=== PATIENT | female | born 1990 | race Caucasian/White ===

== ENCOUNTER 2017-01-05 07:31 | Emergency (ER) | payer OTHER ==
[2017-01-05 07:41] VITALS: BP 110/97
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
--- NOTE | 2017-01-05 09:18 | CR ---
Pelvis: AP view of the pelvis was obtained. Comparison: No prior exam. Joint spaces within both hips are preserved. Sacroiliac joints appear within normal limits. No fracture or other bony abnormality is seen. Impression: 1. No abnormality is identified on AP pelvis study. Diagnostic code #1
== END 2017-01-05 09:06 ==
LOC: JD.ED 07:31
DX: R10.9 Unspecified abdominal pain (principal); F17.210 Nicotine dependence, cigarettes, uncomplicated; Z88.6 Allergy status to analgesic agent; Z79.899 Other long term (current) drug therapy; V49.9XXA Car occupant (driver) (passenger) injured in unspecified traffic accident, initial encounter
CPT/HCPCS: 36415; 72170; 72170-26; 85025; 99283; 99284

== ENCOUNTER 2017-07-23 20:22 | Emergency (ER) | payer SELFPAY ==
[2017-07-23 20:45] VITALS: BP 108/69
--- NOTE | 2017-07-23 22:35 | EDM.PDOC ---
ED HPI GENERAL MEDICAL PROBLEM - General Chief Complaint: ENT Problem Stated Complaint: sore throat Time Seen by Provider: 07/23/17 22:20 Source of Information: Reports: Patient History Limitations: Reports: No Limitations - History of Present Illness INITIAL COMMENTS - FREE TEXT/NARRATIVE: Patient is a 26-year-old female presents the ED complained a 2 day history of sore throat. States with onset symptoms have progressively got worse. Still continues to eat and drink but has noticed a decreased. Pain with swallowing. Sinus congestion with postnasal drip and some ear discomfort. Denies any history of fever. Of note there is questional history of recent sick exposures. She has a productive cough at times secondary to the postnasal drip. She denies any fever, shortness of breath, chest pain, nausea vomiting, or any additional complaints. She has a history of opiod addiction and is on Suboxone. History of anxiety and depression on prozac. Patient smokes half pack per day. Denies any alcohol or recreational drug use. She's had no ENT surgeries. 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 Psychiatric History: Reports: Addiction, Anxiety - Past Surgical History HEENT Surgical History: Reports: Other (See Below) Other HEENT Surgeries/Procedures: tooth extraction Social & Family History - Family History Family Medical History: Noncontributory - Tobacco Use Smoking Status *Q: Current Every Day Smoker Years of Tobacco use: 6 Packs/Tins Daily: 0.5 - Caffeine Use Caffeine Use: Reports: Coffee - Recreational Drug Use Recreational Drug Use: No - Living Situation & Occupation Living situation: Reports: Single, with Family Occupation: Employed ED ROS ENT - Review of Systems Review Of Systems: ROS reveals no pertinent complaints other than HPI. ED EXAM, ENT - Physical Exam Exam: See Below Exam Limited By: No Limitations General Appearance: Alert, WD/WN, No Apparent Distress Eye Exam: Bilateral Eye: PERRL Ears: Normal External Exam, Normal Canal, Hearing Grossly Normal, Normal TMs Nose: Normal Inspection, Normal Mucousa, No Blood Mouth/Throat: Normal Inspection, Pharyngeal Erythema, Throat Pain. No: Drooling , Dry Mucous Membrane, Muffled Voice, Throat Swelling, Tongue Swelling, Tonsillar Erythema, Tonsillar Exudates, Tonsillar Swelling, Trismus, Uvular Deviation Head: Atraumatic, Normocephalic Neck: Normal Inspection, Supple, Full Range of Motion, Tender Lateral. No: Lymphadenopathy (L), Lymphadenopathy (R) Respiratory/Chest: No Respiratory Distress, Lungs Clear, Normal Breath Sounds, No Accessory Muscle Use, Chest Non-Tender Cardiovascular: Normal Peripheral Pulses, Regular Rate, Rhythm Extremities: Normal Inspection Neurological: Alert, Oriented, CN II-XII Intact, Normal Cognition, No Motor/ Sensory Deficits Psychiatric: Normal Affect, Normal Mood Skin: Warm, Dry, Normal Color, No Rash Course - Vital Signs Last Recorded V/S: Last Vital Signs Temp 98.3 F 07/23/17 20:44 Pulse 70 07/23/17 20:44 Resp 20 07/23/17 20:44 BP 108/69 07/23/17 20:44 Pulse Ox 98 07/23/17 20:44 - Orders/Labs/Meds Orders: Active Orders 24 hr Category Date Time Status CULTURE STREP A CONFIRMATION [] Stat Lab 07/23/17 21:43 Results STREP SCRN A RAPID W CULT CONF [] Stat Lab 07/23/17 21:43 Ordered - Re-Assessments/Exams Free Text/Narrative Re-Assessment/Exam: Strep screen negative. Patient has a viral upper respiratory infection with postnasal drip contributing to sore throat. Mild redness noted to the throat with no exposed days. Patient is requesting antibiotic. I have instructed the patient that antibiotics are required at this time. She'll follow-up with her primary this week as needed. Advised the patient cold-like symptoms can last up to 10-14 days. Symptomatic treatment is appropriate. Discharge instructions as documented. Departure - Departure Time of Disposition: 22:31 Disposition: Home, Self-Care 01 Condition: Good Clinical Impression: Viral upper respiratory tract infection Acute pharyngitis Qualifiers: Pharyngitis/tonsillitis etiology: unspecified etiology Qualified Code(s): J02.9 - Acute pharyngitis, unspecified - Discharge Information Instructions: Upper Respiratory Infection, Adult, Rurw-br-Hlrv, Pharyngitis, [id number] Referrals: Glenis Aceves NP [Primary Care Provider] - Forms: ED Department Discharge, ED Return to Work/School Form Additional Instructions: Followup with PCP this week as needed. Utilize tylenol and ibuprofen in alternating fashion for pain. Push the fluids. Utilize flonase 1 spray each nare twice a day. Nasal saline spray as needed throughout the day for nasal congestion. Gargle warm water as needed. May use over the counter Chloraseptic [place] and/or lozenges. Return to the E.D. for any new or worsening symptoms. - My Orders Last 24 Hours: My Active Orders 07/23/17 21:43 CULTURE STREP A CONFIRMATION [RM] Stat STREP SCRN A RAPID W CULT CONF [RM] Stat - Assessment/Plan Last 24 Hours: My Active Orders 07/23/17 21:43 CULTURE STREP A CONFIRMATION [RM] Stat STREP SCRN A RAPID W CULT CONF [RM] Stat
== END 2017-07-23 22:40 | disposition home or self-care (01) ==
LOC: JD.ED 20:22
DX: J02.9 Acute pharyngitis, unspecified (principal); F17.210 Nicotine dependence, cigarettes, uncomplicated; Z88.6 Allergy status to analgesic agent; Z79.899 Other long term (current) drug therapy
CPT/HCPCS: 87081; 87430; 99282; 99283

== ENCOUNTER 2018-04-22 17:54 | Emergency (ER) | payer SELFPAY ==
[2018-04-22 18:05] VITALS: BP 118/91
[2018-04-22] MEDS ORDERED: Orphenadrine 100 MG Tab.ER PO STA (18:40)
[2018-04-22] MEDS ORDERED: Calcium Carbonate 500 MG Tab.Chew PO STA (18:45)
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
== END 2018-04-22 19:07 | disposition home or self-care (01) ==
LOC: JD.ED 17:54
DX: R07.81 Pleurodynia (principal); M25.512 Pain in left shoulder; F17.210 Nicotine dependence, cigarettes, uncomplicated; Z76.5 Malingerer [conscious simulation]; W00.0XXA Fall on same level due to ice and snow, initial encounter
CPT/HCPCS: 99283; A9270; 99282

== ENCOUNTER 2019-02-02 16:30 | Emergency (ER) | payer SELFPAY ==
[2019-02-02 18:26] VITALS: BP 119/76; PULSE 77
--- NOTE | 2019-02-02 20:09 | EDM.PDOC ---
ED HPI GENERAL MEDICAL PROBLEM - General Chief Complaint: ENT Problem Stated Complaint: SORE THROAT Time Seen by Provider: 02/02/19 18:50 Source of Information: Reports: Patient History Limitations: Reports: No Limitations - History of Present Illness INITIAL COMMENTS - FREE TEXT/NARRATIVE: Ms. Ledbetter is a 28-year-old woman with a past medical history significant for anxiety, depression, who states that she has had a sore throat for the past 4 days, upper chest pain for the past 3 days, and a cough occasionally productive of dark brown sputum, for the past 2 days. She states that she had a temperature of 103 last night, although she told the triage nurse that she had not checked her temperature. She is afebrile here in the ED. She reports recent fatigue and body aches, and states that she has had difficulty sleeping. No recent nausea or vomiting. The patient states that she has taken DayQuil, NyQuil, and Sucrets throat lozenges, without relief. She also reports that she has taken Tylenol and ibuprofen, 6 tablets (1200 mg) at one time today. The patient has a history of addiction to both benzodiazepines and opioids. At present, she is prescribed clonazepam 1 mg BID per her PCP, and Suboxone 8-2, 2.5 sublingual tablets per day per her pain child welfare manager. When asked about this, however, the patient downplayed it stating that she only takes Suboxone on occasion. Review of the [place] PMPi, however, finds that the patient receives refills of Suboxone on a monthly basis, with her most recent prescription, a 35 day supply, filled on 01/06/2019. The patient's PCP is Socorro Coley NP. Her pain child welfare manager is Dr. Sanya Duckworth, at [facility] in [place]. She has not received an influenza vaccine this season, but agreed to receive one here today. 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 Psychiatric History: Reports: Addiction (opioids, benzodiazepines), Anxiety, Depression Endocrine/Metabolic History: Reports: Obesity/BMI 30+ - Past Surgical History HEENT Surgical History: Reports: Oral Surgery (3 wisdom teeth extracted) Female Surgical History: Reports: Other (See Below) (Exploratory laparoscopy for endometriosis) Social & Family History - Family History Family Medical History: Noncontributory - Tobacco Use Smoking Status *Q: Current Some Day Smoker Years of Tobacco use: 12 Packs/Tins Daily Comment: Down from 1 ppd - Caffeine Use Caffeine Use: Reports: Coffee, Tea - Alcohol Use Alcohol Use History: No - Recreational Drug Use Recreational Drug Use: Yes Drug Use in Last 12 Months: Yes Recreational Drug Type: Reports: Benzodiazepines (Rx'd clonazepam 1 mg BID), Other (see below) (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 ED EXAM, GENERAL - Physical Exam Exam: See Below Exam Limited By: No Limitations General Appearance: Alert, WD/WN, No Apparent Distress Eye Exam: Bilateral Eye: EOMI, Normal Inspection Ears: Normal External Exam, Normal Canal, Hearing Grossly Normal, Normal TMs Nose: Normal Inspection, Normal Mucosa, No Blood Throat/Mouth: Normal Inspection, Normal Lips, Normal Teeth, Normal Gums, Normal Oropharynx, Normal Voice, No Airway Compromise, Other (Small piece of white foodstuff stuck on uvula. No oropharyngeal erythema or swelling, no tonsillar swelling,and no tonsillar exudates.) Head: Atraumatic, Normocephalic Neck: Normal Inspection, Supple, Non-Tender, Full Range of Motion. No: Lymphadenopathy (L), Lymphadenopathy (R) Respiratory/Chest: No Respiratory Distress, Lungs Clear, Normal Breath Sounds, No Accessory Muscle Use. No: Decreased Breath Sounds, Crackles, Rhonchi, Wheezing, Stridor, Prolonged Expiration Cardiovascular: Normal Peripheral Pulses, Regular Rate, Rhythm, No Edema, No Gallop, No JVD, No Murmur, No Rub Peripheral Pulses: 4+: Radial (L), Radial (R) GI/Abdominal: Normal Bowel Sounds, Soft, Non-Tender, No Organomegaly, No Distention, No Abnormal Bruit, No Mass (Female) Exam: Deferred Rectal (Female) Exam: Deferred Back Exam: Normal Inspection, Full Range of Motion, NT Extremities: Normal Inspection, Normal Range of Motion, No Pedal Edema, Normal Capillary Refill Neurological: Alert, Oriented, Normal Cognition, No Motor/Sensory Deficits, Slow to Respond (and moves slowly) Psychiatric: Normal Affect Skin Exam: Warm, Dry, Intact, Normal Color, No Rash Course - Vital Signs Last Recorded V/S: Last Vital Signs Temp 37.1 C 02/02/19 18:20 Pulse 77 02/02/19 18:20 Resp 16 02/02/19 18:20 BP 119/76 02/02/19 18:20 Pulse Ox 95 02/02/19 18:20 - Orders/Labs/Meds Orders: Active Orders 24 hr Category Date Time Status CULTURE STREP A CONFIRMATION [] Stat Lab 02/02/19 18:39 Results STREP SCRN A RAPID W CULT CONF [] Stat Lab 02/02/19 18:39 Results - Re-Assessments/Exams Free Text/Narrative Re-Assessment/Exam: 02/02/19 20:05 The patient is likely suffering from a viral URI with cough. Her sore throat appears to be viral in etiology; a rapid strep test (ordered by her nurse) is negative, and while I see a piece of foodstuff on her uvula, her tonsils are not swollen, there is no significant oropharyngeal erythema, and there are no tonsillar exudates. For today's purposes, I have ordered a chest x-ray. If her chest x-ray is normal, no further workup is necessary, however, if her chest x- ray suggests pneumonia, then I will need to obtain a CBC and blood cultures. 02/02/19 20:41 Notified by Samson CARDENAS that the patient came and told her that she was going to skip the chest x-ray tonight, that she needed to get home. The patient then left the ED without waiting for discharge instructions. The patient had earlier asked for something to treat her chest pain, and explained that the reason why she took an excessive dose of ibuprofen is because nothing less than that was helping. I am concerned that the patient may have been drug-seeking. Departure - Departure Time of Disposition: 20:42 Disposition: Eloped 07 Condition: Good Clinical Impression: Viral URI with cough, Viral pharyngitis, Drug-seeking behavior - Discharge Information *PRESCRIPTION DRUG MONITORING PROGRAM REVIEWED*: Not Applicable *COPY OF PRESCRIPTION DRUG MONITORING REPORT IN PATIENT VIJI: Not Applicable Referrals: Socorro Coley NP [Primary Care Provider] - Sanya Duckworth MD [Ordering Only Provider] - Forms: ED Department Discharge
== END 2019-02-02 20:15 | disposition left against medical advice (07) ==
LOC: JD.ED 16:30
DX: J06.9 Acute upper respiratory infection, unspecified (principal); J02.8 Acute pharyngitis due to other specified organisms; Z72.89 Other problems related to lifestyle; F41.9 Anxiety disorder, unspecified; F32.9 Major depressive disorder, single episode, unspecified; E66.9 Obesity, unspecified; Z68.31 Body mass index [BMI] 31.0-31.9, adult; Z88.6 Allergy status to analgesic agent; F17.210 Nicotine dependence, cigarettes, uncomplicated
CPT/HCPCS: 87081; 87430; 99281; 99284

== ENCOUNTER 2019-02-03 18:49 | Emergency (ER) | payer SELFPAY ==
[2019-02-03 19:09] VITALS: BP 106/69; PULSE 89
[2019-02-03] MEDS ORDERED: Albuterol/Ipratropium 3.0-0.5 MG/3 ML Neb Soln NEB ONE (19:18)
--- NOTE | 2019-02-03 19:25 | EDM.PDOC ---
ED HPI GENERAL MEDICAL PROBLEM - General Chief Complaint: Respiratory Problem Stated Complaint: sore throat sob Time Seen by Provider: 02/03/19 19:03 Source of Information: Reports: Patient, Old Records (visit from yesterday), RN Notes Reviewed History Limitations: Reports: No Limitations - History of Present Illness INITIAL COMMENTS - FREE TEXT/NARRATIVE: Patient is a 28-year-old female who presents to the ER for the evaluation of a sore throat, and difficulty breathing. Patient notes she was here yesterday, and seen for the same symptoms by Dr. Nieves, but states she did not have a machine attendant, and needed to leave before evaluation was complete. Dr. Nieves plan on ordering a chest x-ray, and her strep screen was negative. Patient states she is still having the sore throat, cough, and generalized body aches. She states she feels warm, but has not had a fever at home. Patient reports she still having a productive cough, with some brown-colored sputum being expectorated. Patient notes she is had a history of pneumonia once before, and her symptoms seem similar in nature. Patient has been taking rabe-ubc-cixzbnh cold medications like DayQuil, Tylenol ibuprofen, throat lozenges, and these seem to be helping the symptoms, but are not helping a whole lot. Mother states that her daughter is also sick at home with cold-like symptoms. Patient states she is a smoker, half pack per day for 10 years, she denies alcohol use or drug use, but does take Suboxone therapy regularly. 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 Musculoskeletal History: Reports: Fracture Neurological History: Reports: Concussion Psychiatric History: Reports: Addiction, Anxiety, Depression Endocrine/Metabolic History: Reports: Obesity/BMI 30+ - Past Surgical History HEENT Surgical History: Reports: Oral Surgery GI Surgical History: Reports: Other (See Below) Female Surgical History: Reports: Other (See Below) Social & Family History - Family History Family Medical History: Noncontributory - Tobacco Use Smoking Status *Q: Current Every Day Smoker Years of Tobacco use: 10 Packs/Tins Daily: 0.5 - Caffeine Use Caffeine Use: Reports: Coffee - Recreational Drug Use Recreational Drug Use: No - Living Situation & Occupation Living situation: Reports: Single, with Family (Daughter) 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 Denies: Chills HEENT: Denies: Rhinitis Respiratory: Reports: Shortness of Breath, Cough, Sputum. Denies: Wheezing Cardiovascular: Reports: Chest Pain (chest discomfort d/t cough) GI/Abdominal: Denies: Abdominal Pain, Constipation, Diarrhea, Nausea, Vomiting Neurological: Denies: Headache ED EXAM, GENERAL - Physical Exam Exam: See Below Exam Limited By: No Limitations General Appearance: Alert, WD/WN, No Apparent Distress Eye Exam: Bilateral Eye: EOMI, Normal Inspection, PERRL Ears: Normal External Exam, Normal Canal, Hearing Grossly Normal, Normal TMs Nose: Normal Inspection, Normal Mucosa, No Blood Throat/Mouth: Normal Inspection, Normal Lips, Normal Teeth, Normal Gums, Normal Oropharynx (mild erythema noted, no obvious swelling), Normal Voice, No Airway Compromise Head: Atraumatic, Normocephalic Neck: Normal Inspection Respiratory/Chest: No Respiratory Distress, No Accessory Muscle Use, Chest Non- Tender, Decreased Breath Sounds (bilaterally), Rhonchi (L lower lung mainly). No: Wheezing Cardiovascular: Normal Peripheral Pulses, Regular Rate, Rhythm, No Murmur Peripheral Pulses: 3+: Radial (L), Radial (R) Extremities: Normal Inspection, Normal Capillary Refill Neurological: Alert, Oriented, Normal Cognition, No Motor/Sensory Deficits Psychiatric: Normal Affect, Normal Mood Skin Exam: Warm, Dry, Intact, Normal Color, No Rash Course - Vital Signs Last Recorded V/S: Last Vital Signs Temp 99.7 F 02/03/19 19:02 Pulse 89 02/03/19 19:02 Resp 16 02/03/19 19:02 BP 106/69 02/03/19 19:02 Pulse Ox 97 02/03/19 19:18 - Orders/Labs/Meds Orders: Active Orders 24 hr Category Date Time Status RT Aerosol Therapy [RC] ASDIRECTED Care 02/03/19 19:18 Active Chest 2V [CR] Stat Exams 02/03/19 19:09 Taken Meds: Medications Discontinued Medications Generic Name Dose Route Start Last Admin Trade Name Toña PRN Reason Stop Dose Admin Albuterol/Ipratropium 3 ml 02/03/19 19:18 02/03/19 19:26 Duoneb 3.0-0.5 Mg/3 Ml NEB 02/03/19 19:19 3 ml ONETIME ONE Administration Ibuprofen 600 mg 02/03/19 19:33 02/03/19 19:39 Motrin PO 02/03/19 19:34 600 mg ONETIME ONE Administration - Re-Assessments/Exams Free Text/Narrative Re-Assessment/Exam: 02/03/19 19:25 Patient presents to the ED for evaluation of sore throat, cough, and increased shortness of breath. I do agree with Dr. Nieves's assessment, and suspect she has a viral upper respiratory infection with a cough. However since she did come to the ER again I will repeat her order the chest x-ray for evaluation, and due to her lung sounds being a little coarse, I did order a DuoNeb for further management. I did offer an IM injection of Toradol for pain management , but the patient declined at this time. 02/03/19 19:39 Patient states that she would like something PO for pain, at this time I did order 600mg Ibuprofen for pain management. 02/03/19 20:05 Chest x-ray is done, and demonstrates no acute consolidation or other abnormality. This was reviewed by myself and Dr. Nieves. It appears that the patient is indeed suffering from a viral respiratory illness, will discharge her home with general recommendations. Departure - Departure Time of Disposition: 20:05 Disposition: Home, Self-Care 01 Condition: Good Clinical Impression: Viral URI with cough - Discharge Information *PRESCRIPTION DRUG MONITORING PROGRAM REVIEWED*: No (was checked yesterday per Dr. Nieves's note) *COPY OF PRESCRIPTION DRUG MONITORING REPORT IN PATIENT VIJI: No Instructions: Viral Respiratory Infection, [id number] Referrals: PCP,None [Primary Care Provider] - Forms: ED Department Discharge, ED Return to Work/School Form Additional Instructions: You have been evaluated in the ED today for your cold like symptoms, cough, sore throat. This is likely a viral illness in etiology. Your chest x-ray did not elicit any sort of consolidation like pneumonia or other worrisome signs at today's visit. Please increase your fluid intake. Get plenty of rest as well. You should feel better in a few days. Recommend that you continue to take rudp-upu-bddmoqv nasal decongestants, cough/ cold remedies to combat this. Medicines like NyQuil, DayQuil, phenylephrine and other sinus decongestants are adequate. You may also take medications like Mucinex, to help thin the mucus, and help with cough suppression. If your symptoms are not better in one week's time recommend that you follow up in a clinic or your primary care provider. Our [facility] clinic number is , the [place] clinic is [phone]. Any family practice provider would be able to provide you with the services. Please return to the ED if your symptoms change or worsen. - My Orders Last 24 Hours: My Active Orders 02/03/19 19:09 Chest 2V [CR] Stat 02/03/19 19:18 RT Aerosol Therapy [RC] ASDIRECTED - Assessment/Plan Last 24 Hours: My Active Orders 02/03/19 19:09 Chest 2V [CR] Stat 02/03/19 19:18 RT Aerosol Therapy [RC] ASDIRECTED
[2019-02-03] MEDS ORDERED: Ibuprofen 600 MG Tab PO ONE (19:33)
--- NOTE | 2019-02-04 09:26 | CR ---
Chest: Two views of the chest were obtained. Comparison: Prior chest x-ray of 07/01/15. Heart size and mediastinum are normal. Lungs are clear. Bony structures appear within normal limits. Impression: 1. Nothing acute is seen on two-view chest x-ray. Diagnostic code #1 This report was dictated in [place] Standard Time
== END 2019-02-03 20:17 | disposition home or self-care (01) ==
LOC: JD.ED 18:49
DX: J06.9 Acute upper respiratory infection, unspecified (principal); F32.9 Major depressive disorder, single episode, unspecified; F17.210 Nicotine dependence, cigarettes, uncomplicated; E66.9 Obesity, unspecified; Z68.32 Body mass index [BMI] 32.0-32.9, adult; Z88.6 Allergy status to analgesic agent; Z79.899 Other long term (current) drug therapy
CPT/HCPCS: 71046; 94640; 99285; A9270; 99282; J7620-GY

== ENCOUNTER 2019-11-26 22:40 | Emergency (ER) | payer BC, MEDICAID ==
[2019-11-26 22:50] VITALS: BP 131/95; PULSE 84
[2019-11-27] MEDS ORDERED: Bupivacaine 0.5% 10 ML SDV INJECT ONE (00:22)
[2019-11-27] MEDS ORDERED: Lidocaine 1% with EPINEPHrine 1:100,000 20 ML MDV INJECT ONE (00:22)
[2019-11-27] MEDS ORDERED: Penicillin V Potassium 500 MG Tab PO STA (00:41)
--- NOTE | 2019-11-27 00:49 | EDM.PDOC ---
ED HPI GENERAL MEDICAL PROBLEM - General Chief Complaint: ENT Problem Stated Complaint: tooth pain Time Seen by Provider: 11/26/19 23:51 Source of Information: Reports: Patient History Limitations: Reports: No Limitations - History of Present Illness INITIAL COMMENTS - FREE TEXT/NARRATIVE: Ms. Ledbetter is a pleasant 29-year-old woman who now presents to the ED with upper left dental pain. She states that she chipped an upper left tooth about 1 month ago, and has had pain to the tooth for the past 2 weeks, much worse tonight after eating something that seemed to irritate it. No recent fever, and no purulent oral drainage. The patient has not made an appointment to see her Dentist, citing lack of insurance. She is requesting a dental block to numb the tooth. Here in the ED, the patient is found to be hemodynamically stable, afebrile, saturating 99% on room air. Other than the dental pain, the patient denies having a recent fever, chills, sore throat, ear pain, nasal or sinus congestion, cough, dyspnea, chest pain, palpitations, nausea, vomiting, constipation, diarrhea, abdominal pain, urinary symptoms, recent weight gain or weight loss, recent bloody bowel movements or black bowel movements, recent joint aches, headaches, or rashes. The patient's PCP is Socorro Coley NP. Her pain manager technical training is Dr. Sanya Duckworth, at [facility] in [place]. Her Dentist is Dr. Pool Ngo. 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) Psychiatric History: Reports: Addiction (opioids, benzodiazepines), Depression, PTSD Endocrine/Metabolic History: Reports: Obesity/BMI 30+ - Past Surgical History HEENT Surgical History: Reports: Oral Surgery (dental extractions) Female Surgical History: Reports: Other (See Below) (Exploratory laparoscopy for endometriosis x 1) Social & Family History - Family History Family Medical History: Noncontributory - Tobacco Use Smoking Status *Q: Current Every Day Smoker Years of Tobacco use: 14 Packs/Tins Daily: 0.5 Packs/Tins Daily Comment: Down from 1 ppd - Caffeine Use Caffeine Use: Reports: Coffee - Alcohol Use Alcohol Use History: No - Recreational Drug Use Recreational Drug Use: No - Living Situation & Occupation Living situation: Reports: Single, with Family (Daughter) 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 ED EXAM, ENT - Physical Exam Exam: See Below Exam Limited By: No Limitations General Appearance: Alert, WD/WN, No Apparent Distress Eye Exam: Bilateral Eye: EOMI, Normal Inspection Ears: Normal External Exam, Normal Canal, Hearing Grossly Normal, Normal TMs Nose: Normal Inspection, Normal Mucousa, No Blood Mouth/Throat: Normal Lips, Normal Oropharynx, Other (General gingivitis and poor oral hygiene. Teeth #1, #2 absent. Tooth #4 absent. Tooth #13 (the tooth of concern) with an anterolateral star. No associated gingival swelling, although there is gingival swelling about tooth #11. No pointing. Teeth #15, 16 absent. Tooth #18 absent. Teeth numbers 22 through 27 with a buccal brace. Tooth #32 absent.) Head: Atraumatic, Normocephalic Neck: Normal Inspection, Supple, Non-Tender, Full Range of Motion. No: Lymphadenopathy (L), Lymphadenopathy (R) ED ENT PROCEDURES - Additional/Other Procedure(s) Other (Free Text) Procedure(s): Procedure: Supraperiosteal injection Indication: Dentalgia Anesthetic: 50:50 admixture of bupivacaine 0.5% without epinephrine and lidocaine 1% with epinephrine Quantity injected: 1-2 ml Location: Tooth #13 The patient tolerated the procedure well Course - Vital Signs Last Recorded V/S: Last Vital Signs Temp 36.0 C L 11/26/19 22:47 Pulse 84 11/26/19 22:47 Resp 17 11/26/19 22:47 BP 131/95 H 11/26/19 22:47 Pulse Ox 99 11/26/19 22:47 - Orders/Labs/Meds Meds: Medications Discontinued Medications Generic Name Dose Route Start Last Admin Trade Name Toña PRN Reason Stop Dose Admin Bupivacaine HCl 10 ml 11/27/19 00:22 11/27/19 00:26 Sensorcaine-Mpf 0.5% INJECT 11/27/19 00:23 10 ml ONETIME ONE Administration Lidocaine/Epinephrine 20 ml 11/27/19 00:22 11/27/19 00:26 Xylocaine 1% With Epinephrine 1:100,000 INJECT 11/27/19 00:23 20 ml ONETIME ONE Administration Penicillin V Potassium 500 mg 11/27/19 00:41 11/27/19 00:46 Veetids PO 11/27/19 00:42 500 mg ONETIME STA Administration - Re-Assessments/Exams Free Text/Narrative Re-Assessment/Exam: 11/27/19 00:41 As above, the patient states that she chipped her upper left tooth about 1 month ago, however, on examination, she appears to have a star of tooth #13. The patient requested a local numbing injection. I therefore prepared a 50:50 admixture of bupivacaine 0.5% without epinephrine and lidocaine 1% with epinephrine, and performed a dental block to tooth #13, aspirating twice and confirming my location before injecting about 2 mL of the admixture. The patient tolerated the procedure well and expressed immediate relief. She has some gingival swelling around tooth #11, but not around tooth #13, and there is no pointing, therefore I am not certain that there is a dental infection, however, the patient is requesting an antibiotic, therefore I will start her on penicillin and prescribe a 10-day course. The patient also requested "something" to help her sleep, stating that the Valium that she is on "doesn't do anything". Given the patient's documented history of addiction to both opioids and benzodiazepines, and her current prescriptions of both Suboxone and diazepam, I do not think it would be appropriate for me to prescribe another sedative. Departure - Departure Time of Disposition: 00:49 Disposition: Home, Self-Care 01 Condition: Good Clinical Impression: Dentalgia, Dental cavity - Discharge Information *PRESCRIPTION DRUG MONITORING PROGRAM REVIEWED*: Not Applicable *COPY OF PRESCRIPTION DRUG MONITORING REPORT IN PATIENT VIJI: Not Applicable Prescriptions: Penicillin V Potassium 1 tab PO Q6HR #40 tab Instructions: Preventive Dental Care, Adult Referrals: PCP,None [Primary Care Provider] - Forms: ED Department Discharge Additional Instructions: You were seen in the emergency room for upper left dental pain. On examination, you appear to have a cavity to an upper left premolar, tooth #13. A numbing dental block was performed, which should give you several hours of relief. You have been started on the antibiotic penicillin, and a prescription for penicillin has been sent to the [facility], located at [address] [place] [address]. Take 1 tablet of penicillin every 6 hours, as prescribed. In addition to penicillin, you may also take jrkk-ykm-lrimvnw ibuprofen, 3 to 4 tablets (600-800 mg) up to every 8 hours, with food, OR [id number] naproxen, 1 to 2 tablets every 12 hours, with food, as needed for discomfort. As discussed, it is very important that you see a dentist within the next 10 days. If any other problems, please do not hesitate to return to the ER. Sepsis Event Note (ED) - Evaluation Sepsis Screening Result: No Definite Risk - Focused Exam Vital Signs: Vital Signs Temp Pulse Resp BP Pulse Ox 11/26/19 22:47 36.0 C L 84 17 131/95 H 99
== END 2019-11-27 00:58 | disposition home or self-care (01) ==
LOC: JD.ED 22:40
DX: K02.9 Dental caries, unspecified (principal); F32.9 Major depressive disorder, single episode, unspecified; F43.10 Post-traumatic stress disorder, unspecified; E66.9 Obesity, unspecified; Z68.34 Body mass index [BMI] 34.0-34.9, adult; F17.210 Nicotine dependence, cigarettes, uncomplicated; Z79.899 Other long term (current) drug therapy
CPT/HCPCS: 64400; 99282; A9270; J3490; 99283

== ENCOUNTER 2020-07-18 18:39 | Emergency (ER) | payer BC, MEDICAID ==
[2020-07-18 19:03] VITALS: BP 106/75; PULSE 99
[2020-07-18] MEDS ORDERED: Sodium Chloride 0.9% 10 ML Syringe FLUSH PRN (19:10)
[2020-07-18] MEDS ORDERED: Sodium Chloride 0.9% 1,000 ML IV STA (19:11)
[2020-07-18] MEDS ORDERED: cefTRIAXone 1 GM in Sodium Chloride 0.9% 100 ML IV ONE (20:12)
--- NOTE | 2020-07-18 20:35 | EDM.PDOC ---
ED HPI GENERAL MEDICAL PROBLEM - General Chief Complaint: Genitourinary Problem Stated Complaint: POSS UTI/SORES ON LEGS Time Seen by Provider: 07/18/20 18:44 Source of Information: Reports: Patient, RN Notes Reviewed History Limitations: Reports: No Limitations - History of Present Illness INITIAL COMMENTS - FREE TEXT/NARRATIVE: Patient is a 29-year-old female presenting to the emergency department with complaints of dysuria with lower abdominal pain that worsens with urination as well as small sores on her legs and arms. Urinary symptoms began approximately 2 days ago. She denies any nausea, vomiting, fever, chills, or flank pain. She has a history of methamphetamine abuse. She had been clean for 6 years, however 1 week ago she relapsed after her was found to be cheating on her. She reports that she injects the drug in her antecubitals. She is concerned with regards to small open areas on her lower legs as well as arms. She states that she saw some "worms "in animal feces when she was changing the puppy pad at her mother's house and is concerned that this is what is causing them. She has been in contact with [facility] in [place] and has been approved to go for treatment. Verbalizes she has next on the waiting list and that they will have an open spot for her at any time. Lower Abdomen Pain Score (Numeric/FACES): 8 - Related Data Allergies Allergy/AdvReac Type Severity Reaction Status Date / Time No Known Allergies Allergy Verified 07/18/20 18:45 Home Meds: Home Meds FLUoxetine [PROzac] 40 mg PO DAILY 01/05/17 [History] Buprenorphine HCl/Naloxone HCl [Suboxone 4 mg-1 mg Sl Film] 1 dose TOP DAILY 07/18/20 [History] Nitrofurantoin Monohyd/M-Cryst [Macrobid 100 mg Capsule] 100 mg PO BID 5 Days #10 capsule 07/18/20 [Rx] Past Medical History [employer]ILD [employer] History: Reports: Endometriosis Musculoskeletal History: Reports: Fracture Neurological History: Reports: Concussion Psychiatric History: Reports: Addiction, Depression, PTSD Endocrine/Metabolic History: Reports: Obesity/BMI 30+ - Past Surgical History HEENT Surgical History: Reports: Oral Surgery Other HEENT Surgeries/Procedures: tooth extraction GI Surgical History: Reports: Other (See Below) Other GI Surgeries/Procedures: Laparscopy Female Surgical History: Reports: Other (See Below) Other Female Surgeries/Procedures: exploratory laprascopy Social & Family History - Family History Family Medical History: No Pertinent Family History - Tobacco Use Tobacco Use Status *Q: Current Every Day Tobacco User Years of Tobacco use: 12 Packs/Tins Daily: 0.2 - Caffeine Use Caffeine Use: Reports: None - Recreational Drug Use Recreational Drug Use: Yes Drug Use in Last 12 Months: Yes Recreational Drug Type: Reports: Methamphetamine Recreational Drug Use Frequency: Daily - Living Situation & Occupation Living situation: Reports: Single, with Family (Daughter) Occupation: Employed ([employer] at [employer]) ED ROS GENERAL - Review of Systems Review Of Systems: See Below Constitutional: Reports: No Symptoms. Denies: Fever, Chills HEENT: Reports: No Symptoms Respiratory: Reports: No Symptoms. Denies: Shortness of Breath, Cough Cardiovascular: Reports: No Symptoms Endocrine: Reports: No Symptoms GI/Abdominal: Reports: Abdominal Pain (intermitted low). Denies: Nausea, Vomiting : Reports: Dysuria, Frequency, Pain. Denies: Flank Pain Musculoskeletal: Reports: No Symptoms Skin: Reports: Other (scattered scabs to extremities) Neurological: Reports: No Symptoms Psychiatric: Reports: Anxiety Hematologic/Lymphatic: Reports: No Symptoms Immunologic: Reports: No Symptoms ED EXAM, RENAL/ - Physical Exam Exam: See Below Exam Limited By: No Limitations General Appearance: Alert, WD/WN, No Apparent Distress Respiratory/Chest: No Respiratory Distress, Lungs Clear, Normal Breath Sounds, No Accessory Muscle Use, Chest Non-Tender Cardiovascular: Normal Peripheral Pulses, Regular Rate, Rhythm, No Edema, No Gallop, No JVD, No Murmur, No Rub GI/Abdominal: Normal Bowel Sounds, Soft, No Organomegaly, No Distention, No Abnormal Bruit, No Mass, Tender (suprapubic tenderness) Extremities: Normal Inspection, Normal Range of Motion, Non-Tender, No Pedal Edema, Normal Capillary Refill, Other (sparsely scattered, small, open areas to lower legs and arms) Neurological: Alert, Oriented, CN II-XII Intact, Normal Cognition, Normal Gait, Normal Reflexes, No Motor/Sensory Deficits Psychiatric: Normal Affect, Normal Mood Course - Vital Signs Last Recorded V/S: Last Vital Signs Temp 98.4 F 07/18/20 18:55 Pulse 99 07/18/20 18:55 Resp 12 07/18/20 18:55 BP 106/75 07/18/20 18:55 Pulse Ox 97 07/18/20 18:55 - Orders/Labs/Meds Orders: Active Orders 24 hr Category Date Time Status Peripheral IV Care [RC] . DIRECTED Care 07/18/20 19:10 Active Sodium Chloride 0.9% [Saline Flush] Med 07/18/20 19:10 Active 10 ml FLUSH ASDIRECTED PRN Peripheral IV Insertion Adult [OM.PC] Stat Oth 07/18/20 19:10 Ordered Medication Orders Sodium Chloride (Sodium Chloride 0.9% 10 Ml Syringe) 10 ml FLUSH ASDIRECTED PRN PRN Reason: Keep Vein Open Last Admin: 07/18/20 19:22 Dose: 10 ml Documented by: DANIEL Labs: Laboratory Tests 07/18/20 07/18/20 07/18/20 Range/Units 18:50 18:50 19:15 WBC 8.44 (3.98-10.04) K/mm3 RBC 4.50 (3.98-5.22) M/mm3 Hgb 12.7 (11.2-15.7) gm/dl Hct 38.9 (34.1-44.9) % MCV 86.4 (79.4-94.8) fl MCH 28.2 (25.6-32.2) pg MCHC 32.6 (32.2-35.5) g/dl RDW Std Deviation 44.0 (36.4-46.3) fL Plt Count 294 D (182-369) K/mm3 MPV 9.5 (9.4-12.3) fl Neut % (Auto) 58.9 (34.0-71.1) % Lymph % (Auto) 30.7 (19.3-51.7) % Finney % (Auto) 6.3 (4.7-12.5) % Eos % (Auto) 3.8 (0.7-5.8) Baso % (Auto) 0.2 (0.1-1.2) % Neut # (Auto) 4.97 (1.56-6.13) K/mm3 Lymph # (Auto) 2.59 (1.18-3.74) K/mm3 Finney # (Auto) 0.53 H (0.24-0.36) K/mm3 Eos # (Auto) 0.32 (0.04-0.36) K/mm3 Baso # (Auto) 0.02 (0.01-0.08) K/mm3 Sodium (136-145) mEq/L Potassium (3.5-5.1) mEq/L Chloride (98-107) mEq/L Carbon Dioxide (21-32) mEq/L Anion Gap (5-15) BUN (7-18) mg/dL Creatinine (0.55-1.02) mg/dL Est Cr Clr Drug Dosing mL/min Estimated GFR (MDRD) (>60) mL/min BUN/Creatinine Ratio (14-18) Glucose (70-99) mg/dL Calcium (8.5-10.1) mg/dL Total Bilirubin (0.2-1.0) mg/dL AST (15-37) U/L ALT (14-59) U/L Alkaline Phosphatase (46-116) U/L Total Protein (6.4-8.2) g/dl Albumin (3.4-5.0) g/dl Globulin gm/dL Albumin/Globulin Ratio (1-2) Urine Color Yellow (Yellow) Urine Appearance Clear (Clear) Urine pH 6.0 (5.0-8.0) Ur Specific Selden > or = 1.030 (1.005-1.030) Urine Protein 2+ H (Negative) Urine Glucose (UA) Negative (Negative) Urine Ketones Trace H (Negative) Urine Occult Blood 3+ H (Negative) Urine Nitrite Positive H (Negative) Urine Bilirubin 1+ H (Negative) Urine Urobilinogen 0.2 (0.2-1.0) Ur Leukocyte Esterase 1+ H (Negative) Urine RBC 40-50 H (0-5) /hpf Urine WBC 30-40 H (0-5) /hpf Ur Squamous Epith Cells 0-5 (0-5) /hpf Amorphous Sediment Moderate H (NOT SEEN) /hpf Urine Bacteria Moderate H (FEW) /hpf Urine Mucus Not seen (FEW) /hpf Hepatitis C Antibody (NEGATIVE) HIV-1 Ab Rapid Screen (NEGATIVE) C trachomatis DNA (PCR) Not detected N gonorrhoeae DNA (PCR) Not detected 07/18/20 07/18/20 Range/Units 19:15 19:15 WBC (3.98-10.04) K/mm3 RBC (3.98-5.22) M/mm3 Hgb (11.2-15.7) gm/dl Hct (34.1-44.9) % MCV (79.4-94.8) fl MCH (25.6-32.2) pg MCHC (32.2-35.5) g/dl RDW Std Deviation (36.4-46.3) fL Plt Count (182-369) K/mm3 MPV (9.4-12.3) fl Neut % (Auto) (34.0-71.1) % Lymph % (Auto) (19.3-51.7) % Finney % (Auto) (4.7-12.5) % Eos % (Auto) (0.7-5.8) Baso % (Auto) (0.1-1.2) % Neut # (Auto) (1.56-6.13) K/mm3 Lymph # (Auto) (1.18-3.74) K/mm3 Finney # (Auto) (0.24-0.36) K/mm3 Eos # (Auto) (0.04-0.36) K/mm3 Baso # (Auto) (0.01-0.08) K/mm3 Sodium 141 (136-145) mEq/L Potassium 3.7 (3.5-5.1) mEq/L Chloride 105 (98-107) mEq/L Carbon Dioxide 30 (21-32) mEq/L Anion Gap 9.7 (5-15) BUN 8 (7-18) mg/dL Creatinine 0.9 (0.55-1.02) mg/dL Est Cr Clr Drug Dosing 95.52 mL/min Estimated GFR (MDRD) > 60 (>60) mL/min BUN/Creatinine Ratio 8.9 L (14-18) Glucose 71 (70-99) mg/dL Calcium 8.4 L (8.5-10.1) mg/dL Total Bilirubin 0.5 (0.2-1.0) mg/dL AST 15 (15-37) U/L ALT 20 (14-59) U/L Alkaline Phosphatase 79 (46-116) U/L Total Protein 6.8 (6.4-8.2) g/dl Albumin 3.7 (3.4-5.0) g/dl Globulin 3.1 gm/dL Albumin/Globulin Ratio 1.2 (1-2) Urine Color (Yellow) Urine Appearance (Clear) Urine pH (5.0-8.0) Ur Specific Selden (1.005-1.030) Urine Protein (Negative) Urine Glucose (UA) (Negative) Urine Ketones (Negative) Urine Occult Blood (Negative) Urine Nitrite (Negative) Urine Bilirubin (Negative) Urine Urobilinogen (0.2-1.0) Ur Leukocyte Esterase (Negative) Urine RBC (0-5) /hpf Urine WBC (0-5) /hpf Ur Squamous Epith Cells (0-5) /hpf Amorphous Sediment (NOT SEEN) /hpf Urine Bacteria (FEW) /hpf Urine Mucus (FEW) /hpf Hepatitis C Antibody Negative (NEGATIVE) HIV-1 Ab Rapid Screen Negative (NEGATIVE) C trachomatis DNA (PCR) N gonorrhoeae DNA (PCR) Meds: Medications Generic Name Dose Route Start Last Admin Trade Name Freq PRN Reason Stop Dose Admin Sodium Chloride 10 ml 07/18/20 19:10 07/18/20 19:22 Sodium Chloride 0.9% 10 Ml Syringe FLUSH 10 ml ASDIRECTED PRN Administration Keep Vein Open Discontinued Medications Generic Name Dose Route Start Last Admin Trade Name Freq PRN Reason Stop Dose Admin Sodium Chloride 1,000 mls @ 999 mls/hr 07/18/20 19:11 07/18/20 19:21 Normal Saline IV 07/18/20 20:11 999 mls/hr NOW STA Administration Ceftriaxone Sodium 1 gm/ 100 mls @ 200 mls/hr 07/18/20 20:12 07/18/20 20:26 Sodium Chloride IV 07/18/20 20:41 200 mls/hr ONETIME ONE Administration - Re-Assessments/Exams Free Text/Narrative Re-Assessment/Exam: Patient is a 29-year-old female presenting to the emergency department with complaints of dysuria, intermittent lower abdominal pain, and concerns regarding some small scabbed areas to her bilateral lower extremities and upper extremities. She reports that she did relapse with methamphetamine use 1 week ago after reports that he was cheating on her. She arrangements have been made for her to go to [facility] for treatment once they have an opening. On exam, she has a few small scabbed areas to her bilateral lower extremities and bilateral upper extremities. These are pinpoint to 0.5 cm in size. There is no redness or erythema to the areas to raise concern of infection. This is likely related to her methamphetamine use. Her exam is otherwise unremarkable. She is requesting to have testing for HIV, hep C, and gonorrhea and chlamydia completed as well. I have ordered blood work, urinalysis, and a 1 L bolus of normal saline. 07/18/20 20:15 Hematology is grossly unremarkable. Hepatitis C and HIV are negative. Urinalysis is grossly positive for urinary tract infection. She has positive nitrites and 1+ leukocyte esterase with numerous RBCs WBCs, and bacteria gonorrhea chlamydia is still pending. I have ordered Rocephin 1 g IV to be given now. 07/18/20 21:13 GC chlamydia was negative. We will discharge the patient home on a prescription for Macrobid. Urine has been sent for culture. Discharge instructions as documented. Departure - Departure Time of Disposition: 21:14 Disposition: Home, Self-Care 01 Condition: Good Clinical Impression: UTI, Urinary tract infectious disease - Discharge Information *PRESCRIPTION DRUG MONITORING PROGRAM REVIEWED*: No *COPY OF PRESCRIPTION DRUG MONITORING REPORT IN PATIENT VIJI: No Prescriptions: Nitrofurantoin Monohyd/M-Cryst [Macrobid 100 mg Capsule] 100 mg PO BID 5 Days #10 capsule Instructions: Urinary Tract Infection, Adult Referrals: Socorro Coley NP [Primary Care Provider] - Forms: ED Department Discharge Additional Instructions: You were seen in the emergency department today for pain and burning with urination. Results of work-up indicate that you have a urinary tract infection. You were also tested today for HIV, hepatitis C, gonorrhea, and chlamydia. All these test were found to be negative. While in the ER, you received a liter of IV fluids as well as IV antibiotics. A [facility] Macrobid which is an [facility]. Recommend that you pick this up tomorrow and take it as prescribed. You may use [id number] Azo for the burning with urination. Recommend that you abstain from the use of methamphetamine. Continue through with your plan to go to [facility] for gabriel atment. If you should experience any new or worsening symptoms, please not hesitate to return to the emergency department for reevaluation Sepsis Event Note (ED) - Evaluation Sepsis Screening Result: No Definite Risk - Focused Exam Vital Signs: Vital Signs Temp Pulse Resp BP Pulse Ox 07/18/20 18:55 98.4 F 99 12 106/75 97 - My Orders Last 24 Hours: My Active Orders 07/18/20 19:10 Peripheral IV Care [RC] . DIRECTED Sodium Chloride 0.9% [Saline Flush] 10 ml FLUSH ASDIRECTED PRN Peripheral IV Insertion Adult [OM.PC] Stat - Assessment/Plan Last 24 Hours: My Active Orders 07/18/20 19:10 Peripheral IV Care [RC] . DIRECTED Sodium Chloride 0.9% [Saline Flush] 10 ml FLUSH ASDIRECTED PRN Peripheral IV Insertion Adult [OM.PC] Stat
[2020-07-18 20:59] LABS: C. TRACHOMATIS BY PCR NOT DETECTED; N. GONORRHOEAE BY PCR NOT DETECTED
== END 2020-07-18 21:41 | disposition home or self-care (01) ==
LOC: SUPCPDRO 18:39 → JD.ED 18:39
DX: N39.0 Urinary tract infection, site not specified (principal); E66.9 Obesity, unspecified; Z68.27 Body mass index [BMI] 27.0-27.9, adult
CPT/HCPCS: 36415; 80053; 81001; 85025; 86803; 87086; 87088; 87186; 87449; 87491; 87591; 96365; 99283; J0696; J7030; G0433

== ENCOUNTER 2022-03-25 20:55 | Emergency (ER) | payer MEDICAID ==
[2022-03-25 21:23] VITALS: BP 119/76; PULSE 65
[2022-03-25] MEDS ORDERED: Bupivacaine 0.25% 10 ML SDV INJECT ONE (22:05)
[2022-03-25] MEDS ORDERED: Lidocaine 1% 5 ML VIAL INJECT ONE (22:05)
[2022-03-25] MEDS ORDERED: Penicillin V Potassium Soln 250 MG/5 ML 100 ML Bottle PO ONE (22:11)
[2022-03-25] MEDS ORDERED: Lidocaine 1% 10 ML MDV ONE (22:15)
[2022-03-25] MEDS ORDERED: Amoxicillin 500 MG Cap PO ONE (22:54)
== END 2022-03-25 22:03 | disposition home or self-care (01) ==
LOC: JD.ED 20:55
DX: K04.7 Periapical abscess without sinus (principal); K02.9 Dental caries, unspecified; K00.7 Teething syndrome; F17.210 Nicotine dependence, cigarettes, uncomplicated; E66.9 Obesity, unspecified; Z68.27 Body mass index [BMI] 27.0-27.9, adult
CPT/HCPCS: 64400; 99282; A9270; J3490

== ENCOUNTER 2022-06-11 13:24 | Emergency (ER) | payer MEDICAID ==
[2022-06-11 13:44] VITALS: BP 107/71; PULSE 97
== END 2022-06-11 16:50 | disposition left against medical advice (07) ==
LOC: JD.ED 13:24
DX: Z91.148 Patient's other noncompliance with medication regimen for other reason (principal); E66.9 Obesity, unspecified; Z68.29 Body mass index [BMI] 29.0-29.9, adult
CPT/HCPCS: 36415; 80053; 84484; 85025; 93005; 93010; 99282; 99284

== ENCOUNTER 2022-07-21 00:08 | Emergency (ER) | payer MEDICAID ==
[2022-07-21 00:44] VITALS: BP 100/86; PULSE 97
[2022-07-21 01:04] LABS: HEMATOCRIT 34.1 % (34.1-44.9); MEAN CORPUSCULAR HEMOGLOBIN 28.3 pg (25.6-32.2); MEAN CORPUSCULAR HGB CONC 32.6 g/dl (32.2-35.5); MEAN PLATELET VOLUME 9.2 fl (9.4-12.3); PLATELET COUNT,PLT 284 K/mm3 (182-369); RED BLOOD CELL COUNT 3.92 M/mm3 (3.98-5.22); WHITE BLOOD CELL COUNT,WBC 6.72 K/mm3 (3.98-10.04)
[2022-07-21 01:13] LABS: HEMOGLOBIN 11.1 gm/dl (11.2-15.7)
[2022-07-21 01:24] LABS: CORONAVIRUS COVID-19 NAA NEGATIVE (NEGATIVE); INFLUENZA A NAA NEGATIVE (NEGATIVE); RESPIRATORY SYNCYTIAL VIR NAA NEGATIVE (NEGATIVE)
[2022-07-21 01:26] LABS: A/G RATIO 1.1 (1-2); ALANINE AMINOTRANSFERASE,ALT 30 U/L (14-59); ALBUMIN 3.3 g/dl (3.4-5.0); ALKALINE PHOSPHATASE 64 U/L (46-116); ANION GAP 10.8 (5-15); ASPARTATE AMNIOTRANSFERASE,AST 17 U/L (15-37); BILIRUBIN TOTAL 0.3 mg/dL (0.2-1.0); BLOOD UREA NITROGEN,BUN 10 mg/dL (7-18); BUN/CREATININE RATIO 12.5 (14-18); C-REACTIVE PROTEIN <0.2 mg/dL (<1.0); CALCIUM 8.1 mg/dL (8.5-10.1); CARBON DIOXIDE,CO2 26 mEq/L (21-32); CHLORIDE,CL 107 mEq/L (98-107); CREATININE 0.8 mg/dL (0.55-1.02); EST CRCL DRUG DOSING (CG) 105.51 mL/min; ESTIMATED GFR 100 mL/min (>60); GLUCOSE RANDOM 85 mg/dL (70-99); POTASSIUM,K 3.8 mEq/L (3.5-5.1); PROTEIN TOTAL,TP 6.2 g/dl (6.4-8.2); SODIUM,NA 140 mEq/L (136-145)
[2022-07-21 01:33] LABS: BAND PERCENT MAN 1 % (0-10); BASOPHILS PERCENT MAN 0 (0.1-1.2); EOSINOPHILS PERCENT MAN 5 % (0.7-5.8); LYMPHOCYTES % ATYPICAL MANUAL 0 %; LYMPHOCYTES PERCENT MAN 42 % (20-40); MONOCYTES PERCENT MAN 3 % (2-10)
[2022-07-21 01:34] LABS: PLATELET COUNT ESTIMATE ADEQUATE
== END 2022-07-21 02:30 | disposition home or self-care (01) ==
LOC: JD.ED 00:08
DX: F40.298 Other specified phobia (principal); F17.210 Nicotine dependence, cigarettes, uncomplicated; Z20.822 Contact with and (suspected) exposure to COVID-19
CPT/HCPCS: 0241U; 36415; 80053; 85007; 85027; 86140; 99283

== ENCOUNTER 2022-12-16 21:02 | Emergency (ER) | payer MEDICAID ==
[2022-12-16 21:15] VITALS: PULSE 85
[2022-12-16 21:51] LABS: BASOPHILS PERCENT AUTO 0.6 % (0.0-1.0); EOSINOPHILS ABSOLUTE AUTO 0.3 K/mm3 (0.0-0.4); EOSINOPHILS PERCENT AUTO 4.8 % (0.0-6.0); HEMATOCRIT 34.1 % (37.0-47.0); HEMOGLOBIN 11.3 gm/dl (12.0-16.0); IMMATURE GRAN ABSOLUTE AUTO 0.01 K/mm3 (0.00-0.05); IMMATURE GRAN PERCENT AUTO 0.2 % (0.0-0.4); LYMPHOCYTES ABSOLUTE AUTO 2.9 K/mm3 (1.0-4.8); MEAN CORPUSCULAR HEMOGLOBIN 29.2 pg (28.0-32.0); MEAN CORPUSCULAR HGB CONC 33.1 g/dl (32.0-36.0); MEAN CORPUSCULAR VOLUME 88.1 fl (83.0-99.0); MEAN PLATELET VOLUME 8.4 fl (9.4-12.3); MONOCYTES ABSOLUTE AUTO 0.4 K/mm3 (0.0-0.8); MONOCYTES PERCENT AUTO 6.2 % (0.0-8.0); NEUTROPHILS ABSOLUTE AUTO 2.9 K/mm3 (1.8-7.7); NEUTROPHILS PERCENT AUTO 44.2 % (41.0-71.0); PLATELET COUNT,PLT 312 K/mm3 (150-400); RED BLOOD CELL COUNT 3.87 M/mm3 (4.10-5.30); WHITE BLOOD CELL COUNT,WBC 6.63 K/mm3 (3.9-11.3)
[2022-12-16 22:10] LABS: A/G RATIO 1.1 (1-2); ALANINE AMINOTRANSFERASE,ALT 22 U/L (14-59); ALBUMIN 3.6 g/dl (3.4-5.0); ALKALINE PHOSPHATASE 62 U/L (46-116); ANION GAP 13.5 (5-15); ASPARTATE AMNIOTRANSFERASE,AST 19 U/L (15-37); BILIRUBIN TOTAL 0.4 mg/dL (0.2-1.0); BLOOD UREA NITROGEN,BUN 12 mg/dL (7-18); BUN/CREATININE RATIO 17.1 (14-18); C-REACTIVE PROTEIN <0.2 mg/dL (<1.0); CALCIUM 8.5 mg/dL (8.5-10.1); CARBON DIOXIDE,CO2 28 mEq/L (21-32); CHLORIDE,CL 103 mEq/L (98-107); CREATININE 0.7 mg/dL (0.55-1.02); EST CRCL DRUG DOSING (CG) 119.46 mL/min; ESTIMATED GFR 117 mL/min (>60); GLUCOSE RANDOM 63 mg/dL (70-99); POTASSIUM,K 3.5 mEq/L (3.5-5.1); PROTEIN TOTAL,TP 6.8 g/dl (6.4-8.2); SODIUM,NA 141 mEq/L (136-145)
[2022-12-17 01:50] VITALS: BP 96/63
== END 2022-12-16 23:00 | disposition home or self-care (01) ==
LOC: JD.ED 21:02
DX: F22 Delusional disorders (principal); E66.9 Obesity, unspecified; Z68.26 Body mass index [BMI] 26.0-26.9, adult
CPT/HCPCS: 36415; 80053; 85025; 86140; 99283

== ENCOUNTER 2023-01-15 15:22 | Emergency (ER) | payer MEDICAID ==
[2023-01-15 15:36] VITALS: BP 98/73; PULSE 120
[2023-01-15] MEDS ORDERED: Amoxicillin/Clavulanate K 875-125 MG Tab PO ONE (16:17)
[2023-01-15] MEDS ORDERED: FLUoxetine 10 MG Cap PO ONE (16:20)
[2023-01-15] MEDS ORDERED: FLUoxetine 20 MG Cap PO ONE (16:30)
== END 2023-01-15 17:12 | disposition home or self-care (01) ==
LOC: JD.ED 15:22
DX: K02.9 Dental caries, unspecified (principal); H57.89 Other specified disorders of eye and adnexa; E66.9 Obesity, unspecified; Z76.0 Encounter for issue of repeat prescription; Z68.24 Body mass index [BMI] 24.0-24.9, adult
CPT/HCPCS: 99283; A9270